=== PATIENT | female | born 1945 | race Caucasian/White ===

== ENCOUNTER → 2021-06-10 | Outpatient (CLI) | payer OTHER ==
[~2021-06-10] MED LIST: HYDROCHLOROTHIA25 MG PO; LOSARTAN POTAS100 MG PO; METFORMIN HCL500 MG PO; METOPROLOL SUCC25 MG PO; NORVASC10 MG PO; OXYBUTYNIN CHLOR5 M1 PO; PRILOSEC20 MG PO
== END ==
LOC: MRI 07:23 → EDBD 08:00
PROVIDERS: ATTEND Podiatrist Foot & Ankle Surgery
DX: M86.571 Other chronic hematogenous osteomyelitis, right ankle and foot (principal)

== ENCOUNTER 2025-06-27 17:27 | Inpatient (IN) | payer MEDICARE, OTHER ==
[~2025-06-27] VITALS: Ht 157.5 cm; Wt 63.5 kg
[2025-06-27 18:10] LABS: BASOPHILS % 0.4 % (0.0-1.0); EOSINOPHILS % 1.0 % (0.0-6.0); LYMPHOCYTES % 26.0 % (18.0-39.1); MONOCYTES % 10.2 % (4.4-11.3); NEUTROPHILS % 60.7 % (38.7-80.0); RED CELL DISTRIBUTION WIDTH 25.2 % (11.7-14.4)
[2025-06-27 18:21] LABS: EPITHELIAL CELLS,URINE MANY /LPF; LEUKOCYTE ESTERASE ,URINE LARGE (NEGATIVE); PROTEIN,URINE DIPSTICK >=300 (NEGATIVE); URINE UROBILINOGEN 0.2 mg/dL (0.2 - 1); WBC,URINE (MAN) >50 /HPF (0-5)
[2025-06-27] MEDS: SODIUM CHLORIDE 0.9% 1000ML 1,910 ML IV SCH (18:24)
[2025-06-27] MEDS: MEROPENEM 1 GM in SODIUM CHLORIDE 0.9% 100 ML IV ONE (18:24)
[2025-06-27 18:25] LABS: INR 2.12
[2025-06-27] MEDS ORDERED: SODIUM CHLORIDE 0.9% 1000ML 1,000 ML ONE (18:27)
[2025-06-27 18:36] LABS: EST GLOMERULAR FILTRATION RATE 11.0 ML/MIN (>=60)
[2025-06-27] MEDS ORDERED: SODIUM BICARBONATE 8.4% SYRING 150 ML ONE (19:24)
[2025-06-27] MEDS ORDERED: DEXTROSE 5% 1,000 ML IV ONE (19:24)
[2025-06-27] MEDS ORDERED: DEXTROSE 50% SYRINGE 50 ML IV PRN (19:45)
[2025-06-27] MEDS ORDERED: ONDANSETRON HCL INJ 2MG/ML 2ML 2 MG/ML VIAL IV PRN ×2 (19:45)
[2025-06-27] MEDS ORDERED: DOCUSATE SODIUM 100 MG CAP PO PRN (19:45)
[2025-06-27] MEDS ORDERED: MAGNESIUM/ALUMINUM/SIMETHICONE 30 ML UDC PO PRN (19:45)
[2025-06-27] MEDS ORDERED: GUAIFENESIN/DEXTROMETHORPHAN LIQD 5 ML UDC PO PRN (19:45)
[2025-06-27] MEDS ORDERED: ACETAMINOPHEN 325 MG TAB PO PRN (19:45)
[2025-06-27] MEDS ORDERED: MELATONIN 3 MG TAB PO PRN (19:45)
[2025-06-27] MEDS ORDERED: HYDRALAZINE HCL 20 MG/ML VIAL IV PRN (19:45)
[2025-06-27] MEDS: SODIUM BICARBONATE 8.4% VIAL 150 ML in DEXTROSE 5% 1,000 ML IV ONE (19:46)
[2025-06-27] MEDS: Vancomycin IV 1 GM in SODIUM CHLORIDE 0.9% 250ML 250 ML IV ONE (19:46)
[2025-06-27] MEDS: ASPIRIN 81 MG CHEW TAB PO ONE (19:47)
[2025-06-27] MEDS: INSULIN REGULAR, HUMAN 100 UNIT/1 ML SQ SCH (21:00)
[2025-06-27] MEDS: HEPARIN SOD (PORCINE) 5,000 UNIT/ML VIAL SC SCH (21:12)
[2025-06-27 21:20] VITALS: PULSE 93; RESP 16; TEMP 97.8
[2025-06-27 22:00] VITALS: BP 143/98; PULSE 96; RESP 15; TEMP 97.5; O2SAT 94
[2025-06-27 22:31] VITALS: BP 143/98; PULSE 96; RESP 15; TEMP 97.5; O2SAT 94
[2025-06-27] MEDS ORDERED: MIRTAZAPINE15 MG PO (22:37)
[2025-06-27] MEDS ORDERED: MEGESTROL ACETA40 MG PO (22:37)
[2025-06-27 22:47] VITALS: BP 143/98; PULSE 96; RESP 15; TEMP 97.5; O2SAT 94
[2025-06-28] VITALS (18 sets, daily range): BP systolic 86–146; BP diastolic 36–103; PULSE 88–131; RESP 11–20; TEMP 97–97.5; O2SAT 96–100
[2025-06-28] MEDS: SODIUM BICARBONATE 8.4% SYRING 150 ML in DEXTROSE 5% 1,000 ML IV SCH ×2 (00:15→09:47)
[2025-06-28] MEDS: SODIUM CHLORIDE 0.9% 500ML 500 ML IV ONE (00:20)
[2025-06-28 06:22] LABS: BASOPHILS % 0.5 % (0.0-1.0); EOSINOPHILS % 0.7 % (0.0-6.0); LYMPHOCYTES % 18.2 % (18.0-39.1); MONOCYTES % 9.0 % (4.4-11.3); NEUTROPHILS % 69.8 % (38.7-80.0); RED CELL DISTRIBUTION WIDTH 23.6 % (11.7-14.4)
[2025-06-28 06:47] LABS: EST GLOMERULAR FILTRATION RATE 14.0 ML/MIN (>=60)
[2025-06-28] MEDS ORDERED: OXYBUTYNIN CHLORIDE XL 5 MG TAB PO SCH (09:00)
[2025-06-28] MEDS: METOPROLOL SUCCINATE 25 MG TAB XL PO SCH (09:00)
[2025-06-28] MEDS ORDERED: OMEPRAZOLE 20 MG CAP PO SCH (09:00)
[2025-06-28] MEDS ORDERED: DEXTROSE 50% SYRINGE 50 ML IV PRN (09:15)
[2025-06-28] MEDS ORDERED: SODIUM BICARBONATE 8.4% SYRING 150 ML in DEXTROSE 5% 1,000 ML IV SCH (09:30)
[2025-06-28] MEDS: MULTIVITAMINS/MINERALS TAB PO SCH (09:51)
[2025-06-28] MEDS: FOLIC ACID/CYANOCOB/PYRIDOXINE TAB PO SCH (10:51)
[2025-06-28] MEDS: INSULIN LISPRO 100 UNIT/1 ML 3ML VIAL SQ SCH (11:19)
[2025-06-28] MEDS: METOCLOPRAMIDE HCL 10 MG/2ML VIAL IV SCH (11:20)
[2025-06-28] MEDS: METOPROLOL TARTRATE INJ 1 MG/ML VIAL IV PRN (22:49)
[2025-06-29] VITALS (21 sets, daily range): BP systolic 71–138; BP diastolic 58–114; PULSE 87–132; RESP 10–20; TEMP 98.1–98.8; O2SAT 95–100
[2025-06-29 05:41] LABS: ABG BASE EXCESS -10.0 mmol/L (-2 - 3); ABG HCO3 15 mmol/L (22-26); ABG OXYGEN SATURATION 66.0 % (95-98); ABG PCO2 24 mmHg (35-45); ABG PH 7.40 (7.35-7.45); ABG PO2 34 mmHg (80-105); ABG TCO2 15
[2025-06-29 06:53] LABS: BASOPHILS % 0.2 % (0.0-1.0); EOSINOPHILS % 1.0 % (0.0-6.0); LYMPHOCYTES % 23.3 % (18.0-39.1); MONOCYTES % 7.8 % (4.4-11.3); NEUTROPHILS % 66.0 % (38.7-80.0); RED CELL DISTRIBUTION WIDTH 24.7 % (11.7-14.4)
[2025-06-29 07:29] LABS: EST GLOMERULAR FILTRATION RATE 16.0 ML/MIN (>=60)
[2025-06-29] MEDS: LACTATED RINGER'S 1,000 ML INJ SCH ×2 (11:00→17:20)
[2025-06-29] MEDS ORDERED: LACTATED RINGER'S 1,000 ML INJ SCH (16:30)
[2025-06-30] VITALS (13 sets, daily range): BP systolic 83–129; BP diastolic 55–94; PULSE 92–111; RESP 9–18; TEMP 98.8–98.9; O2SAT 97–100
[2025-06-30 06:56] LABS: EST GLOMERULAR FILTRATION RATE 19.0 ML/MIN (>=60)
== END 2025-06-30 16:00 | disposition hospice, home (50) | DRG 871 ==
LOC: ER 18:02 → ERHOLD 19:37 → ICU 22:09 → MED/SURG3 06-30 14:54
PROVIDERS: ADMIT Internal Medicine; ATTEND Internal Medicine
PROC: 4A033B1 Measurement of Arterial Pressure, Peripheral, Percutaneous Approach (ICD-10-PCS; principal; 2025-06-28)
DX: A41.9 Sepsis, unspecified organism (principal); E43 Unspecified severe protein-calorie malnutrition; N17.0 Acute kidney failure with tubular necrosis; I48.20 Chronic atrial fibrillation, unspecified; N39.0 Urinary tract infection, site not specified; E87.20 Acidosis, unspecified; E87.21 Acute metabolic acidosis; E86.0 Dehydration; R65.20 Severe sepsis without septic shock; R62.7 Adult failure to thrive; M19.90 Unspecified osteoarthritis, unspecified site; H40.9 Unspecified glaucoma; R53.1 Weakness; R63.0 Anorexia; F03.90 Unspecified dementia, unspecified severity, without behavioral disturbance, psychotic disturbance, mood disturbance, and anxiety; R33.9 Retention of urine, unspecified; E78.5 Hyperlipidemia, unspecified; Z88.1 Allergy status to other antibiotic agents; Z68.25 Body mass index [BMI] 25.0-25.9, adult; Z87.440 Personal history of urinary (tract) infections
CPT/HCPCS: 36415; 71045; 76770; 80048; 80053; 81001; 82550; 82805; 82948; 83605; 83880; 84484; 85025; 85610; 85730; 87040; 87086; 87186; 93005; 94799; 96372; 99252; 99285; J1644; J2185; J2470; J2765; J3373; J7030; J7040; J7050; J7070